=== PATIENT | female | born 1955 | race Caucasian/White ===

== ENCOUNTER 2024-05-12 14:58 | Inpatient (IN) ==
[2024-05-12] MEDS: Lactated Ringers SEPSIS* BAG 1,570 ML IV ONE (15:56)
[2024-05-12 16:15] LABS: High Sens Troponin Baseline 30 pg/mL (<15)
[2024-05-12 16:28] LABS: Hematocrit 42.6 % (35-45); Hemoglobin 13.8 g/dL (11.5-14.3); Mean Corpuscular Hgb Conc 32.3 g/dL (31-36); Mean Corpuscular Volume 92.8 fL (80-97); Mean Platelet Volume 10.9 fL (7.5-11.2); Platelet Count 332 10^3/uL (150-450); Red Blood Count 4.59 10^6/uL (3.63-4.92); Red Cell Distribution Width 16.8 % (12-17); White Blood Count 12.2 10^3/uL (3.8-11.8)
[2024-05-12] MEDS: Cefepime 2 GM in Dextrose 2 GM/50 ML BAG IV ONE (16:42)
[2024-05-12 16:52] LABS: ALT 12 U/L (7-52); Albumin 3.1 g/dL (3.2-5.2); Albumin/Globulin Ratio 0.9 (1-3); Alkaline Phosphatase 105 U/L (35-149); Anion Gap 13 mmol/L (2-16); Blood Urea Nitrogen 64 mg/dL (6-24); C Reactive Protein 357.56 mg/L (<8.01); CO2 Carbon Dioxide 24 mmol/L (22-32); Calcium 10.9 mg/dL (8.6-10.3); Chloride 101 mmol/L (101-111); Creatinine, Serum 2.56 mg/dL (0.51-0.95); Globulin 3.6 g/dL (2-4); Glucose 144 mg/dL (70-100); Sodium 138 mmol/L (135-145); Total Bilirubin 0.7 mg/dL (0.2-1.0); Total Protein 6.7 g/dL (6.4-8.9)
[2024-05-12] MEDS: Vancomycin 1,250 MG in NS 0.9% 250 ml 250 ML IVPB ONE (17:02)
[2024-05-12 17:07] LABS: High Sensitivity Troponin 1 Hr 18 pg/mL (<15)
[2024-05-12 17:08] LABS: Activated Partial Thrombo Time 35.8 seconds (26.0-38.0); INR 1.19 (0.83-1.13)
[2024-05-12 18:31] LABS: Potassium Redraw 3.9 mmol/L (3.5-5.0)
[2024-05-12] MEDS ORDERED: Ondansetron 4 mg VIAL 2 MG/ML 2 ml VIAL IV PRN (18:58)
[2024-05-12] MEDS ORDERED: Naloxone Nasal Spray 4 MG/0.1 ML NASAL.SPR INTRANASAL PRN (19:00)
[2024-05-12] MEDS: Vancomycin SOL ORALSYR 50 MG/ML ML PO SCH (20:24)
[2024-05-12] MEDS: NS 0.9% 1000 ml BAG 1,000 ML IV SCH (21:08)
[2024-05-13] MEDS: Lactated Ringers 1000 ml BAG 500 ML IV ONE (01:16)
[2024-05-13 04:54] LABS: Albumin 2.7 g/dL (3.2-5.2); Albumin/Globulin Ratio 0.9 (1-3); Calcium 10.1 mg/dL (8.6-10.3); Creatinine, Serum 3.19 mg/dL (0.51-0.95); Globulin 2.9 g/dL (2-4); Magnesium 3.1 mg/dL (1.9-2.7); Phosphorus 5.6 mg/dL (2.5-5.0); Total Bilirubin 0.8 mg/dL (0.2-1.0); Total Protein 5.6 g/dL (6.4-8.9); eGFR CKD-EPI 15.3 (>60)
[2024-05-13 05:49] LABS: Hematocrit 44.3 % (35-45); Mean Corpuscular Hemoglobin 30.6 pg (27-33); Mean Corpuscular Hgb Conc 31.6 g/dL (31-36); Mean Corpuscular Volume 97.1 fL (80-97); Mean Platelet Volume 10.3 fL (7.5-11.2); Platelet Count 288 10^3/uL (150-450); Red Blood Count 4.56 10^6/uL (3.63-4.92); White Blood Count 7.5 10^3/uL (3.8-11.8)
[2024-05-13] MEDS ORDERED: Norepinephrine 16 MG/250mL NS 16,000 MCG/250 ML BAG IV SCH (05:50)
[2024-05-13] MEDS: Phenylephrine 40 mcg/mL 10mL (400mcg) SYRINGE IV PUSH PRN (05:50)
[2024-05-13] MEDS ORDERED: KETAMINE HCL 10 MG/ML 20 ml VIAL (200 MG) ONE (05:59)
[2024-05-13] MEDS ORDERED: Rocuronium 50 mg VIAL 10 mg/ml 5 ml VIAL (50 mg) ONE (05:59)
[2024-05-13] MEDS: Norepinephrine *QUAD STRENGTH* 16 mg/250 mL NS PREMIX (ICU ONLY) IV SCH (06:30)
[2024-05-13 06:40] LABS: Albumin 2.6 g/dL (3.2-5.2); Calcium 9.7 mg/dL (8.6-10.3); Creatinine, Serum 3.31 mg/dL (0.51-0.95); Globulin 2.7 g/dL (2-4); Potassium 4.1 mmol/L (3.5-5.0); Total Bilirubin 0.8 mg/dL (0.2-1.0); Total Protein 5.3 g/dL (6.4-8.9); eGFR CKD-EPI 14.7 (>60)
[2024-05-13] MEDS: PHENYLEPHRINE DRIP IVPREMIX 50 MG/250 ML BAG IV SCH (06:45)
[2024-05-13 06:55] LABS: Resp Rate 18
[2024-05-13 07:00] LABS: PCO2 Arterial 52 mmHg (35-45); PO2 Arterial 60 mmHg (80-100)
[2024-05-13] MEDS: Norepinephrine 4 MG/250mL D5W 4,000 MCG/250 ML BAG IV SCH (07:20)
[2024-05-13] MEDS: Propofol 10 mg/ml 100 ML BTL 1,000 MG/100 ML BTL ONE (07:22)
[2024-05-13] MEDS: Sodium Bicarb 8.4% Vial 50 ML 150 MEQ in D5W 1000 ml BAG 850 ML IV SCH (07:30)
[2024-05-13 07:38] LABS: ABS Lymphocytes 0.7 10^3/uL (1.0-4.8); ABS Monocytes 0.2 10^3/uL (0.0-0.9); ABS Neutrophils 6.6 10^3/uL (1.5-7.6); ABS Nucleated RBC 0.02 10^3/ul; Lymphocyte % 9.3 %; Nucleated Red Blood Cells % 0.2 %/100WBC (0.0-0.8); RBC Morphology Normal (Normal)
[2024-05-13] MEDS: NS 0.9% 1000 ml BAG 1,000 ML IV SCH (07:45)
[2024-05-13] MEDS: Succinylcholine 200 mg VIAL 20 mg/ml 10 ml VIAL (200 mg) ONE (07:45)
[2024-05-13] MEDS: fentaNYL 100 mcg/2 ml 50 MCG/ML VIAL ONE (07:45)
[2024-05-13] MEDS: Rocuronium 50 mg VIAL 10 mg/ml 5 ml VIAL (50 mg) ONE (07:45)
[2024-05-13] MEDS: Phenylephrine 40 mcg/mL 10mL (400mcg) SYRINGE ONE (07:57)
[2024-05-13] MEDS: VASOPRESSIN IVPREMIX BTL 40 UNIT/100 ML BTL IV ONE (07:57)
[2024-05-13 08:16] VITALS: BP 36/27
[2024-05-13 08:18] LABS: Resp Rate 24
[2024-05-13 08:22] LABS: PCO2 Arterial 42 mmHg (35-45); PO2 Arterial 61 mmHg (80-100)
[2024-05-13] MEDS ORDERED: cefTRIAXone 1 gm/50 mL D5W 1 GM/50 ML BAG IV SCH (09:00)
[2024-05-13] MEDS ORDERED: cefTRIAXone 2 gm/50 mL D5W 2 GM/50 ML BAG IV SCH (09:00)
[2024-05-13] MEDS: VASOPRESSIN IVPREMIX BTL 40 UNIT/100 ML BTL IV SCH (09:26)
[2024-05-13] MEDS: Sodium Bicarbonate 8.4% SYR 50 ml SYRINGE ONE (09:26)
[2024-05-13] MEDS: Vancomycin SOL ORALSYR 50 MG/ML ML FEED TUBE SCH (09:33)
[2024-05-13] MEDS: cefTRIAXone 2 gm/50 mL D5W 2 GM/50 ML BAG IV SCH (09:33)
[2024-05-13] MEDS: Morphine 10 MG/ML VIAL (1 ml) ONE (09:51)
[2024-05-13] MEDS: Morphine 10 MG/ML VIAL (1 ml) IV PRN (09:51)
== END 2024-05-13 10:07 | disposition expired | DRG 853 ==
LOC: ED 14:58 → EDHOLD 18:53 → MEDTELE 21:18 → ICU 05-13 04:59
PROVIDERS: ADMIT Internal Medicine; ATTEND Surgery Surgical Critical Care